=== PATIENT | female | born 1970 | race African-American/Black ===

== ENCOUNTER 2023-12-03 06:10 | Emergency (ER) | payer OTHER, SELFPAY ==
--- NOTE | ~2023-12-03 | XR_ITS ---
AP view of the pelvis and AP and lateral views of the bilateral hips Clinical history: Pain Findings: No acute fracture or dislocation is seen. Osseous alignment is anatomic. Bilateral hip and SI joint spaces are preserved. Soft tissues are unremarkable. Impression: No significant abnormality is seen. Reviewed, dictated and finalized at location . Impression: No significant abnormality is seen.
--- NOTE | ~2023-12-03 | XR_ITS ---
Lumbosacral Spine: AP and lateral views Clinical History: Pain Findings: The normal lordotic curve is maintained. There are bilateral L4 pars interarticularis defec ts, with 16 mm anterolisthesis of L4-L5. There is moderate degenerative disc narrowing L4-L5. There i s moderate facet arthropathy at L4-L5 and L5-S1. The sacroiliac joints are normally outlined. Impression: Bilateral L4 pars interarticular defects, with 16 mm anterolisthesis of L4 over L5. Additional moderate degenerative spondylosis of the lumbar spine, as above. Reviewed, dictated and finalized at location . Impression: Bilateral L4 pars interarticular defects, with 16 mm anterolisthesis of L4 over L5. Additional moderate degenerative spondylosis of the lumbar spine, as above.
[2023-12-03 06:13] VITALS: BP 149/93; PULSE 97; RESP 18; TEMP 36.8; O2SAT 100
[2023-12-03] MEDS: KETOROLAC 30 MG/ML VIAL (*BKC) IM (07:45)
[2023-12-03] MEDS: ORPHENADRINE CITRATE 100 MG TABLET.ER PO (07:45)
[2023-12-03] MEDS: dexAMETHasone SOD PHOS INJ 10 MG/ML 1 ML VIAL IM (07:45)
--- NOTE | 2023-12-03 08:33 | ED.GENADULT ---
HPI - General Adult General Chief complaint: Extremity Problem,Nontraumatic Stated complaint: Bilateral hip pain Time Seen by Provider: 12/03/23 07:31 History of Present Illness HPI narrative: Patient is a 53-year-old female who presents emergency department with chief complaint of plantar hip pain. Patient reports symptoms include worse of it has gotten worse recently. Patient states that hurts whenever she walks patient reports no trauma reports that she has had no fever denies bowel or bladder incontinence patient reports that there is no numbness or tingling. Patient reports that the pain goes from her bilateral hips down her legs and reports that it is worse with movement. Related Data Allergies Allergy/AdvReac Type Severity Reaction Status Date / Time Penicillins Allergy Mild Unknown Verified 12/03/23 06:18 Review of Systems Review of Systems: A 10 system review of systems was completed on the patient and is negative except for what is stated in the HPI. Nursing and ancillary documentation was reviewed. Exam Narrative: GENERAL: Well-appearing, well-nourished, and in no acute distress. HEAD: Normocephalic, atraumatic. EYES: PERRLA and EOMI. ENT: Nares clear, no rhinorrhea or epistaxis. Mucous membranes moist. NECK: Supple. CHEST: Clear to auscultation. No respiratory distress. HEART: Regular rate and rhythm. No murmur heard. Normal peripheral pulses. ABDOMEN: Soft, nontender, nondistended, normal active bowel sounds. EXTREMITIES: Normal range of motion. No edema. Tenderness to palpation in bilateral SI joint region SKIN: Warm, dry, no rash. NEURO: No focal deficits. Alert and oriented x3. No saddle anesthesia no footdrop PSYCH: Normal mood and affect. Course Vital Signs Vital signs: Vital Signs Temperature 36.8 C 12/03/23 06:13 Pulse Rate 97 12/03/23 06:13 Respiratory Rate 18 12/03/23 06:13 Blood Pressure 149/93 H 12/03/23 06:13 Pulse Oximetry 100 12/03/23 06:13 Oxygen Delivery Room Air 12/03/23 06:13 Temperature 36.8 C 12/03/23 06:13 Pulse Rate 97 12/03/23 06:13 Respiratory Rate 18 12/03/23 06:13 Blood Pressure 149/93 H 12/03/23 06:13 Pulse Oximetry 100 12/03/23 06:13 Oxygen Delivery Room Air 12/03/23 06:13 Medical Decision Making MDM Narrative Medical decision making narrative: Differential diagnosis includes sciatica, lumbar radiculopathy, osteoarthritis Vital Signs Vital Signs: Vital Signs Temperature 36.8 C 12/03/23 06:13 Pulse Rate 97 12/03/23 06:13 Respiratory Rate 18 12/03/23 06:13 Blood Pressure 149/93 H 12/03/23 06:13 Pulse Oximetry 100 12/03/23 06:13 Oxygen Delivery Room Air 12/03/23 06:13 Temperature 36.8 C 12/03/23 06:13 Pulse Rate 97 12/03/23 06:13 Respiratory Rate 18 12/03/23 06:13 Blood Pressure 149/93 H 12/03/23 06:13 Pulse Oximetry 100 12/03/23 06:13 Oxygen Delivery Room Air 12/03/23 06:13 Discharge Plan Discharge Clinical Impression: Sciatica Patient Disposition: Home, Self-Care Condition: Stable Instructions: Antibiotic Form, Sciatica (ED) Prescriptions: New orphenadrine citrate 100 mg tablet extended release 100 mg PO Q12H PRN (Reason: muscle spasm) Qty: 20 0RF prednisone 20 mg tablet 40 mg PO DAILY 5 Days Qty: 10 0RF diclofenac potassium 50 mg tablet 50 mg PO TID PRN (Reason: pain) Qty: 21 0RF lidocaine [Lidoderm] 5 % adhesive patch,medicated 1 patch topical DAILY PRN (Reason: pain) Qty: 15 0RF Rx Instructions: leave on most painful area for up to 12 hrs Follow-up/Referrals: UNKNOWN,DOCTOR [Primary Care Provider] - Time of Disposition: 08:38
== END 2023-12-03 08:51 | disposition home or self-care (01) ==
PROVIDERS: Emergency Provider Emergency Medicine
DX: M54.30 Sciatica, unspecified side (principal)
CPT/HCPCS: 72100; 73521; 96372; 99284; A9270; J1100; J1885

== ENCOUNTER 2025-03-26 12:33 | Emergency (ER) | payer OTHER, SELFPAY ==
[2025-03-26 12:38] VITALS: BP 150/92; PULSE 103; RESP 18; TEMP 36.9; O2SAT 98
--- NOTE | 2025-03-26 14:12 | ED.BACK ---
HPI - Back Pain/Injury General Chief Complaint: Back Pain/Injury Stated Complaint: low back pain Time Seen by Provider: 03/26/25 14:16 Source: patient Mode of arrival: ambulatory Limitations: no limitations History of Present Illness HPI Narrative: Patient is a 55-year-old female who presents the ED with report of low back pain. Patient reports she has been having ongoing pain intermittently since March. Reports intermittent spasms throughout her bilateral lower back. Has had imaging performed here and at another facility in the past which showed arthritis. Notes her recently came home after prolonged hospital stay and she has been helping him with a gait belts and Sandrita lift and believes she may have strained her back related to this. Reports pain was worse this morning upon waking. She tried taking Tylenol and ibuprofen this morning without improvement. Denies radiation down legs. Denies numbness/weakness of BLE, saddle anesthesia, bowel or bladder incontinence, dysuria, hematuria. Related Data Allergies Allergy/AdvReac Type Severity Reaction Status Date / Time Penicillins Allergy Mild Unknown Verified 03/26/25 12:40 Review of Systems Review of Systems: All systems reviewed & are unremarkable except as noted in HPI. All systems reviewed & are unremarkable except as noted in HPI and below Exam Narrative: GENERAL: Well appearing, well-nourished, non-toxic, in no acute distress. HEAD: Normocephalic, atraumatic. RESPIRATORY: Airway patent, respirations nonlabored. Clear to auscultation bilaterally, no rales, rhonchi, wheezing. CARDIOVASCULAR: Regular rate and rhythm without murmurs, rubs, or gallops. MUSCULOSKELETAL: Moves all extremities. No gross deformities. No midline lumbar spinal tenderness. No palpable bony deformities or step-offs. Mild tenderness to palpation throughout bilateral SI regions, slightly worse on the left. No CVA tenderness. Sensation intact. SKIN: Warm, dry, normal color. NEURO: A&O X3. Speech clear. Cranial nerves II-XII grossly intact. Steady gait. No ataxic movements. PSYCHIATRIC: Appropriate mood and affect. Normal interaction. Course Vital Signs Vital signs: Vital Signs Temperature 98.4 F 03/26/25 12:38 Pulse Rate 103 H 03/26/25 12:38 Respiratory Rate 18 03/26/25 12:38 Blood Pressure 150/92 H 03/26/25 12:38 Pulse Oximetry 98 03/26/25 12:38 Oxygen Delivery Room Air 03/26/25 12:38 Temperature 98.4 F 03/26/25 12:38 Pulse Rate 103 H 03/26/25 12:38 Respiratory Rate 18 03/26/25 12:38 Blood Pressure 150/92 H 03/26/25 12:38 Pulse Oximetry 98 03/26/25 12:38 Oxygen Delivery Room Air 03/26/25 12:38 MDM MDM Narrative Medical decision making narrative: Patient presented to ED with acute on chronic lower back pain. Has had pain for over 1 year that has been similar. Vital signs stable upon arrival. Patient neurologically intact. No midline spinal tenderness. No red flag symptoms or evidence of cord compression or cauda equina. Discussed obtaining repeat imaging today as it has been over a year since her last x-ray, however patient politely declined. States this feels typical of her normal back pain just worse than usual. Denies any urinary complaints or symptoms to suggest GI/ source. Discussed referral to neurosurgery. Patient is in agreement with this. Also recommended follow-up with PCP. Will discharge with short course of muscle relaxers, lidocaine patches for home use. Advised to continue Tylenol/ibuprofen. Given return precautions. She is in agreement with plan, feels comfortable going home. Discharged in stable condition. Differential Diagnosis Differential Diagnosis: Lumbar strain, compression fracture, kidney stone Medical Records I have reviewed the following patient records and this information was taken into consideration when formulating the assessment and plan.: previous labs, previous ER visits, previous hospitalizations and previous clinic visits Discharge Plan Discharge Clinical Impression: Strain of lumbar region, Acute on chronic low back pain Patient Disposition: Home Condition: Stable Instructions: Antibiotic Form, Acute Low Back Pain (ED), Lower Back Exercises (ED) Additional Instructions: Continue Tylenol and Ibuprofen as needed for pain. You can take 1000 mg of Tylenol and 600 mg of ibuprofen every 6 hours. You may use ice/heat, lidocaine patches to area of pain. Take muscle relaxers as needed and prescribed. Recommend taking these at night as they may cause sedation. Do not drive, operate heavy machinery, drink alcohol while on muscle relaxers as this may cause further sedation. Follow-up with your primary care doctor and/or neurosurgery for further evaluation. Call offices to make appointments. Return to the ED if you experience worsening or severe pain, fall or injury, numbness in groin or legs, going to the bathroom without meaning to, unable to keep down food or drink, blood in urine, or any other symptoms of concern. Patient Language: Bulgarian Prescriptions: New methocarbamol 750 mg tablet 1,500 mg PO TID PRN (Reason: muscle spasm) Qty: 15 0RF lidocaine 5 % adhesive patch,medicated 1 patch topical DAILY Qty: 15 0RF Rx Instructions: leave on most painful area for up to 12 hrs No Action orphenadrine citrate 100 mg tablet extended release 100 mg PO Q12H PRN (Reason: muscle spasm) Qty: 20 0RF prednisone 20 mg tablet 40 mg PO DAILY 5 Days Qty: 10 0RF diclofenac potassium 50 mg tablet 50 mg PO TID PRN (Reason: pain) Qty: 21 0RF lidocaine [Lidoderm] 5 % adhesive patch,medicated 1 patch topical DAILY PRN (Reason: pain) Qty: 15 0RF Rx Instructions: leave on most painful area for up to 12 hrs Follow-up/Referrals: Cherie Solorzano MD [Physician, Neurosurgery] UNKNOWN,DOCTOR [Primary Care Provider] Time of Disposition: 14:28
--- OUTSIDE RECORDS SUMMARY | 2025-03-26 14:29 | XMS_ITS | Clinical Summary ---
Author Organization [facility] Address [address] [place] [address] Care Team Providers Care Orthopedic Specialist Name Role Phone Merline Ketaing MD Primary Care Prov ider Allergies No known active allergies Medications cyclobenzaprine (FLEXERIL) 10 mg tablet Take 1 tablet (10 mg total) by mouth 2 (two) times a day as needed for muscle spasms 20 tablet 09/18/2024 Active predniSONE (DELTASONE) 20 mg tablet Take 2 tablets (40 mg) by mouth daily 8 tablet 09/18/2024 Active acetaminophen (TYLENOL) 500 mg tablet Take 1 tablet (500 mg total) by mouth every 6 (six) hours as needed for pain 30 tablet 09/18/2024 Active Surgical History Surgery Date Site/Laterality Comments OOPHERECTOMY DILATION AND CURETTAGE OF UTERUS Medical History Medical History Date Comments Trigger finger Hypertension Acid reflux Ectopic Social History Tobacco Use Types Packs/Day Years Used Date Smoking Tobacco: Every Day Cigarettes Smokeless Tobacco: Never Alcohol Use Standard Drinks/Week Comments Not Currently 0 (1 standard drink = 0.6 oz pur e alcohol) Personal Safety Answer Date Recorded Have you ever been in or are you currently in a harmful physical or emotional relationship or is someone making you feel afraid or unsafe? Denies 09/18/2024 Comments No Sex and Gender Information Value Date Recorded Sex Assigned at Not on file Legal Sex Female 11:35 PM [employer] Gender Identity Not on file Sexual Orientation Not on file Last Filed Vital Signs Vital Sign Reading Time Taken Comments Blood Pressure 127/90 09/18/2024 9:08 AM CDT Pulse 87 09/18/2024 9:08 AM CDT Temperature 36.9 C (98.4 F) 09/18/2024 7:29 AM CDT Respiratory Rate 18 09/18/2024 9:08 AM CDT Oxygen Saturation 100% 09/18/2024 9:08 AM CDT Inhaled Oxygen Concentration - - Weight 80.3 kg (177 lb) 09/18/2024 7:29 AM CDT Height 157.5 cm (5' 2) 09/18/2024 7:29 AM CDT Body Mass Index 32.37 09/18/2024 7:29 AM CDT Plan of Treatment Health Maintenance Due Date Last Done Comments Cervical Cancer Screening 1969 Colon Cancer Screening-Colonoscopy 1969 Depression Screening 1969 Hepatitis C Screening 1969 DTaP/Tdap/Td Vaccine (1 - Tdap) 02/01/1980 Hepatitis B Screening 1987 Regular Well Visit/Exam 18-64 1987 Pneumococcal vaccine <65 (1 of 2 - PCV) 02/01/1988 Breast Cancer Screening-Mammogram 09/23/2017 017 Zoster Vaccine (1 of 2) 2019 Covid-19 Vaccine (3 - season) 2024, 10/06/2020 Influenza Vaccine (#1) 2024 06/07/2021 Procedures Procedure Name Priority Date/Time Associated Diagnosis Comments SCREENING MAMMOGRAM BILATERAL W RUBEN Routine 09/23/2016 11:01 AM CDT from Last 3 Months or Most Recently Relevant to Health Maintenance Results * Screening Mammogram Bilateral W Ruben (09/23/2016 11:01 AM CDT) Anatomical Region Laterality Modality Breast Bilateral Mammography 09/23/2016 11:0 1 AM CDT Impressions 09/23/2016 12:43 PM CDT BI-RAD 1 NEGATIVE There is no mammographic evidence of malignancy. A 1 year screening mammogram is recommended. The patient has been or will be contacted. The patient will be entered into a reminder system with a target due date of 1 year for her next screening exam. Electronically signed by: Dr. John Hernandes M.D. nh/:09/23/2016 12:42:47 Tow Motor Operator: Sara Snowden (R)), [facility] letter sent: Normal Exam Reading location: BI-RADS: 1 Negative [EOD] Narrative 09/23/2016 12:43 PM CDT - MG BILATERAL DIGITAL SCREENING MAMMOGRAM 3D/2D WITH MEDIOLATERAL OBLIQUE CRANIOCAUDAL: 09/23/2016 The study was acquired using full field digital technology and interpreted from soft copy. 2D digital mammographic views, as well as 3D digital tomosynthesis were performed in the CC and MLO projections. CLINICAL: Baseline mammogram. Denies any problems today. No personal history of breast cancer. No family history of breast cancer. COMPARISONS: None. BREAST TISSUE: The tissue of both breasts is heterogeneously dense, which may obscure small masses. FINDINGS: No significant masses, calcifications, or other findings are seen in either breast. Procedure Note Provider, MD Henrry - 08/12/2020 - MG BILATERAL DIGITAL SCREENING MAMMOGRAM 3D/2D WITH MEDIOLATERAL OBLIQUE CRANIOCAUDAL: 09/23/2016 The study was acquired using full field digital technology and interpretedfrom soft copy. 2D digital mammographic views, as well as 3D digital tomosynthesis were performed in the CC and MLO projections. CLINICAL: Baseline mammogram. Denies any problems today. No personalhistory of breast cancer. No family history of breast cancer. COMPARISONS: None. BREAST TISSUE: The tissue of both breasts is heterogeneously dense, whichmay obscure small masses. FINDINGS: No significant masses, calcifications, or other findings areseen in either breast. IMPRESSION: BI-RAD 1 NEGATIVE There is no mammographic evidence of malignancy. A 1 year screeningmammogram is recommended. The patient has been or will be contacted. The patient will be entered into a reminder system with a target due dateof 1 year for her next screening exam. Electronically signed by: Dr. John Hernandes M.D. nh/:09/23/2016 12:42:47 Tow Motor Operator: Sara Snowden (R)), [facility] letter sent: Normal Exam Reading location: BI-RADS: 1 Negative [EOD] Sol Cummings SUPERVISOR CHANNEL PROCESS IMG MAMMO PROCEDURES Fin al Result from Last 3 Months or Most Recently Relevant to Health Maintenance Insurance [facility] Care Teams Orthopedic Specialist Relationship Specialty Start Date End Date Merline Keating MD PCP - General Family Medicine 11/07/21
--- OUTSIDE RECORDS SUMMARY | 2025-03-26 14:29 | XMS_ITS | Data Portability ---
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 Plan of Treatment Reminders Order Date Submit Date Provider Last Modified By Organization Details Last Modified Time Details Appointments ANY 15 2025 01:45P Homer mayer MD Not available Not available Not available Lab HbA1c (hemog lobin A1c), blood 2024 025 [email or web address] In-Office Order, Internal Use Only DO Not Attach Compendium DO Not Attach Compendium, Do Not Delete/merge, [id number] 10/23/2024 14:43:21 hepati tis B surfac e Ab, quanti tative , serum 2023 024 CHAY [facility] (Centralized Electronic Ordering - All Locations), Patient Can Go To The Location Of Their Choice, [id number] 03/07/2024 08:29:37 varice lla zoster virus IgG Ab, QN, IA, serum 2023 024 CHAY [facility] (Centralized Electronic Ordering - All Locations), Patient Can Go To The Location Of Their Choice, [id number] 03/07/2024 08:29:38 HbA1c (hemog lobin A1c), blood 2023 024 [email or web address] In-Office Order, Internal Use Only DO Not Attach Compendium DO Not Attach Compendium, Do Not Delete/merge, [id number] 03/06/2024 12:31:44 CMP, serum or plasma 2023 024 FONDA [facility] (Centralized Electronic Ordering - All Locations), Patient Can Go To The Location Of Their Choice, [id number] 03/07/2024 08:29:36 Referral physic al therap ist referr pr 2024 025 franklyn [facility], [address], [place], [address], 10/23/2024 14:43:30 gastro entero logist referr pr 2024 025 alirio [facility], [address], [place], [address], 11/14/2024 11:50:57 Procedures None record ed. Surgeries None record ed. Imaging None record ed. Medication Orders cyclob enzapr ine 10 mg tablet 2024 025 FONDA [id number], [address] , [place], [place], [id number], 10/23/2024 14:43:27 ammoni um lactat e 12 % lotion 2023 024 FONDA [facility] #[id number], [address] [facility], [place], [place], [id number], 02/02/2024 13:46:54 Patient TargetsNo targets recorded. Patient Instructions Encounter Date Encounter Id Patient Instructions Last Modified By Organization Details Last Modified Time 03/06/2024 [id number] A healthy lifestyle: care instructions [email or web address] Not available 03/06/2024 22:46:43 Quitting Tobacco: Care Instructions [email or web address] Not available 03/06/2024 22:47:40 FU 6 months [email or web address] Not available 1 05/08/2023 13:58:26 10/23/2024 [id number] FU 6 months [email or web address] Not available 10/24/2024 10:08:34 Reason for Referral Physical Therapist Referral for Low back pain Referring Physician: Hellen Deiz [facility], Encounter Date: 10/23/2024 Trailer Park Manager Referral for Screening for malignant neoplasm of colon Referring Physician: Hellen Diez [facility], Encounter Date: 10/23/2024 Results Created Date Observation Date Name Description Value Unit Range Abnormal Flag Note LastModifiedBy Organization Detail LastModifiedTime 03/06/20 24 03/07/2024 COMP. METAB OLIC PANEL (14) glucose 82 mg/dL 70-99 Not Available [facility] ([facility]) [address] [place], [address], 03/07/2024 08:29:36 03/06/20 24 03/07/2024 COMP. METAB OLIC PANEL (14) BUN 12 mg/dL 6-24 Not Available [facility] ([facility]) [address] [place], [address], 03/07/2024 08:29:36 03/06/20 24 03/07/2024 COMP. METAB OLIC PANEL (14) creatinine 0.72 mg/dL 0.57-1 .00 Not Available [facility] ([facility]) [address] [place], [address], 03/07/2024 08:29:36 03/06/20 24 03/07/2024 COMP. METAB OLIC PANEL (14) eGFR 99 mL/mi n/1.7 3 >59 Not Available [facility] ([facility]) [address] [place], [address], 03/07/2024 08:29:36 03/06/20 24 03/07/2024 COMP. METAB OLIC PANEL (14) BUN/creatini ne ratio 17 9-23 Not Available [facility] ([facility]) [address] [place], [address], 03/07/2024 08:29:36 03/06/20 24 03/07/2024 COMP. METAB OLIC PANEL (14) sodium 142 mmol/ L 134-14 4 Not Available [facility] ([facility]) [address] [facility] [place], [address], 03/07/2024 08:29:36 03/06/20 24 03/07/2024 COMP. METAB OLIC PANEL (14) potassium 4.0 mmol/ L 3.5-5. 2 Not Available [facility] ([facility]) [address] [facility] [place], [address], 03/07/2024 08:29:36 03/06/20 24 03/07/2024 COMP. METAB OLIC PANEL (14) chloride 107 mmol/ L 96-106 above high normal Not Available [facility] ([facility]) [address] [place], [address], 03/07/2024 08:29:36 03/06/20 24 03/07/2024 COMP. METAB OLIC PANEL (14) carbon dioxide, total 20 mmol/ L 20-29 Not Available [facility] ([facility]) [address] [facility] [place], [address], 03/07/2024 08:29:36 03/06/20 24 03/07/2024 COMP. METAB OLIC PANEL (14) calcium 9.8 mg/dL 8.7-10 .2 Not Available [facility] ([facility]) [address] [facility] [place], [address], 03/07/2024 08:29:36 03/06/20 24 03/07/2024 COMP. METAB OLIC PANEL (14) protein, total 6.8 g/dL 6.0-8. 5 Not Available [facility] ([facility]) [address] [facility] [place], [address], 03/07/2024 08:29:36 03/06/20 24 03/07/2024 COMP. METAB OLIC PANEL (14) albumin 4.5 g/dL 3.8-4. 9 Not Available [facility] ([facility]) [address] [place], [address], 03/07/2024 08:29:36 03/06/20 24 03/07/2024 COMP. METAB OLIC PANEL (14) globulin, total 2.3 g/dL 1.5-4. 5 Not Available [facility] ([facility]) [address] [place], [address], 03/07/2024 08:29:36 03/06/20 24 03/07/2024 COMP. METAB OLIC PANEL (14) bilirubin, total 0.3 mg/dL 0.0-1. 2 Not Available [facility] ([facility]) [address] [facility] [place], [address], 03/07/2024 08:29:36 03/06/20 24 03/07/2024 COMP. METAB OLIC PANEL (14) alkaline phosphatase 98 IU/L 44-121 Not Available [facility]) [address] [facility] [place], [address], 03/07/2024 08:29:36 03/06/20 24 03/07/2024 COMP. METAB OLIC PANEL (14) AST (SGOT) 18 IU/L 0-40 Not Available [facility] ([facility]) [address] [facility] [place], [address], 03/07/2024 08:29:36 03/06/20 24 03/07/2024 COMP. METAB OLIC PANEL (14) ALT (SGPT) 20 IU/L 0-32 Not Available [facility] ([facility]) [address] [facility] [place], [address], 03/07/2024 08:29:36 03/06/20 24 03/07/2024 HEPAT ITIS B SURF [place]ANT [place] [address]. 0 mIU/m L immuni ty>10 Resul ts confi rmed on dilut ion. Statu s of Immun ity Anti- HBs Level ----- ----- ----- --- ----- ----- ---- Incon siste nt with Immun ity 0.0 - 10.0 Consi stent with Immun ity >10.0 Not Available [facility] ([facility]) [address] [facility], [place], [address], 03/07/2024 08:29:37 03/06/20 24 03/07/2024 VZV IGG IMMUN ITY vzv IgG 16.00 S/co >0.99 Not Available [facility] ([facility]) [address] [facility], [place], [address], 03/07/2024 08:29:38 03/06/20 24 03/07/2024 VZV IGG IMMUN ITY vzv IgG interpretati on: REACTI VE Not Available [facility] ([facility]) [address] [facility], [place], [address], 03/07/2024 08:29:38 03/06/20 24 03/07/2024 PLEAS E NOTE: please note: Commen t A react aric resul t is consi dered evide nce of immun ity to VZV. React aric indic ates that VZV IgG was detec corry consi stent with previ ous infec tion and/o r vacci natio n. The signa l-to- cutof f value (S/CO ) is not an antib siddharth titer and does not equat e to antib siddharth level . Not Available [facility] ([facility]) [address] [facility], [place], [address], 03/07/2024 08:29:40 03/06/20 24 03/06/2024 HbA1c (hemo globi n A1c), blood HbA1c 6.5 Not Available In-Office Order Internal Use Only DO Not Attach Compendium DO Not Attach Compendium, Do Not Delete/merge, [id number] 03/06/2024 11:55:35 10/24/19 25 10/23/2024 HbA1c (hemo globi n A1c), blood HbA1C 6.5 % Not Available In-Office Order Internal Use Only DO Not Attach Compendium DO Not Attach Compendium, Do Not Delete/merge, [id number] 10/23/2024 14:05:48 07/10/19 25 07/09/2024 elect rocwoodrow diogr am No observ ation record ed. [facility] Scheduling [address], [place], [address], 07/09/2024 17:26:25 07/10/19 25 07/09/2024 XR, chest No observ ation record ed. [facility] Scheduling [address], [place], [address], 07/09/2024 17:26:46 07/10/19 25 07/09/2024 elect bisi diogr am No observ ation record ed. [facility] Scheduling [address], [place], [address], 07/09/2024 17:27:09 09/09/19 25 09/08/2024 XR, lumba r spine No observ ation record ed. [facility] Scheduling [address], [place], [address], 09/09/2024 12:17:36 09/09/19 25 09/08/2024 XR, hip + pelvi s, bilat eral No observ ation record ed. [facility] Scheduling [address], [place], [address], 09/09/2024 12:18:20 Result Notes None recorded. Problems Name Problem SNOMED Code Status Onset Date Resolution Date Notes Provider Name and Address Organization Details Recorded Time Acid reflux 422159439 Active 2015 Camelia Montemayor MA null, [place] - [facility] 11:28:47 Heart murmur 38772754 Active 2015 LYNETTE Malagon, [place] - [facility] 11:33:10 Deep venous thrombosi s 921310343 Active 2020 distal R calf - not clear provoked Hellen rome MD Attn: Accounting ,[address] [place], [address] , [facility] 1 10:15:14 Abnormal uterine bleeding 39940216721 100 Active 2020 Hellen rome MD Attn: Accounting ,[address] [facility], [place], [address] , [facility] - [facility] 1 11:55:23 Mass of ovary 340043077 Active 2020 R ovarian mass 05/2017 - s/p oophorect ayush Hellen rome MD Attn: Accounting ,[address] [place], [address] , [facility] 1 09:35:05 Abnormal cervical Papanicol aou smear 058950105 Active 04/2021 HPV+ 16/18 neg. Repeat one year Hellen rome MD Attn: Accounting ,[address] [place], [address] , [facility] 2 17:28:52 Essential hypertens ion 23335071 Active 2021 Hellen rome MD Attn: Accounting ,[address] [place], [address] , [facility] 2 13:22:02 Diabetes mellitus 67276628 Active 2021 early DM - metformin and wt loss Hellen rome MD Attn: Accounting ,[address] [place], [address] , [facility] 2 13:29:19 Problem Notes None recorded. Procedures Surgical History Date Name Laterality Status Provider Name and Address Organization Details Recorded Time 05/03/19 Endometrial Biopsy completed Sincere Blunt [facility] 05/03/2021 13:55:14 05/03/19 22 Date of Last Pap Smear completed Sincere Blunt [facility] 05/10/2021 12:38:49 12/19/19 21 Most Recent Mammogram completed Cathyolegario Ruiz MP [facility] 12/07/2021 11:18:51 03/15/20 17 Endometrial Biopsy completed [facility] 03/15/2017 21:54:57 06/07/19 17 Cerumen removal without microscope completed Lissett Green [facility] 06/06/2016 13:18:49 03/27/19 06 Oophorectomy completed [facility] 12/21/2016 15:50:17 03/27/18 95 Ectopic completed [facility] 12/21/2016 15:48:21 03/27/18 90 Dilation and Curettage completed [facility] 12/21/2016 15:49:46 Imaging Results None recorded. Procedure Notes None recorded. Medical Equipment None Reported. Allergies Allergen ID Allergen Name Allergen Category Reaction Reaction Severity Criticality Documentation Date Start Date Code Code System Note Provider Name and Address Organization Details Recorded Time 66916 Darvocet- N medicatio n headache nausea Not available Not available Not available 12/21/2016 LYNETTE Tanner, [facility] 7 15:09:45 52217 acetamino phen / oxycodone medicatio n headache nausea Not available Not available Not available 12/21/2016 43164 3 RxNorm Sincere westfall [facility] 2 13:51:27 Medications Name Sig Start Date Stop Date Status Note LastModified by Organization Details LastModified Time cyclobenz aprine 10 mg tablet Take 1 tablet(s ) twice a day by oral route as needed 2024 active Not Available Not Available Not Avai lable amoxicill in 500 mg capsule 05/03 completed Not Available Not Available Not Available atorvasta tin 40 mg tablet TAKE 1 TABLET BY MOUTH EVERY DAY active Not Available Not Available No t Available metformin 500 mg tablet TAKE 1 TABLET BY MOUTH TWICE DAILY 12/25 completed Not Available Not Available Not Available prednison e 10 mg tablet 09/02 completed Not Available Not Available Not Available nabumeton e 750 mg tablet TAKE 1 TABLET BY MOUTH TWICE DAILY 10/24 completed Not Available Not Available Not Available clindamyc in HCl 300 mg capsule TAKE 1 CAPSULE BY MOUTH EVERY 8 HOURS 12/25 completed Not Available Not Available Not Available ammonium lactate 12 % lotion APPLY A THIN LAYER TO FEET TWICE DAILY active Not Available Not Available No t Available triamcino lone acetonide 0.5 % topical cream 09/02 completed Not Available Not Available Not Available ibuprofen 800 mg tablet 12/25 completed Not Available Not Available Not Available fluconazo le 150 mg tablet TAKE 1 TABLET BY MOUTH EVERY DAY FOR 1 DAY 12/25 completed Not Available Not Available Not Available hydrocodo ne 5 mg-acetam inophen 325 mg tablet 12/21 completed Not Available Not Available Not Available promethaz ine 6.25 mg/5 mL oral syrup Take 10 mL every 6 hours by oral route as needed. 09/02 completed Not Available Not Available Not Available Claritin 10 mg tablet Take 1 tablet(s ) every day by oral route as needed 2024 active Not Available Not Available Not Avai lable famotidin e 40 mg tablet TAKE 1 TABLET BY MOUTH EVERY DAY NEEDED 02/15 completed Not Available Not Available Not Available prednison e 20 mg tablet TAKE 2 TABLETS BY MOUTH DAILY FOR 5 DAYS 10/24 completed Not Available Not Available Not Available penicilli n V potassium 500 mg tablet TAKE 1 TABLET BY MOUTH THREE TIMES DAILY FOR 7 DAYS 12/25 completed Not Available Not Available Not Available clotrimaz ole 1 % vaginal cream Insert 1 applicat orful every day by vaginal route at bedtime for 7 days. 03/15 completed Not Available Not Available Not Available acetamino phen 300 mg-codein e 30 mg tablet 08/12 completed Not Available Not Available Not Available amlodipin e 5 mg tablet Take 1 tablet every day by oral route. 12/25 completed Not Available Not Available Not Available sulfameth oxazole 800 mg-trimet hoprim 160 mg tablet TAKE 1 TABLET BY MOUTH TWICE DAILY 09/02 completed Not Available Not Available Not Available tramadol 50 mg tablet 09/02 completed Not Available Not Available Not Available triamcino lone acetonide 0.1 % topical cream 09/02 completed Not Available Not Available Not Available amoxicill in 500 mg tablet 05/03 completed Not Available Not Available Not Available warfarin 6 mg tablet Take 1 tablet every day by oral route. 05/03 completed stopped 2months ago Not Available Not Available Not Available OneTouch Ultra Test strips USE TO CHECK BLOOD SUGAR DAILY NEEDED active Not Available Not Available No t Available amlodipin e 10 mg tablet TAKE 1 TABLET BY MOUTH EVERY DAY active Not Available Not Available No t Available benzonata te 100 mg capsule TK ONE C PO TID PRN COU 08/12 completed Not Available Not Available Not Available ferrous sulfate 325 mg (65 mg iron) tablet Take 1 tablet every day by oral route. 10/24 completed Not Available Not Available Not Available metformin 1,000 mg tablet Take 1 tablet(s ) twice a day by oral route for 90 days. 2023 active Not Available Not Available Not Avai lable ranitidin e 150 mg tablet TAKE 1 TABLET BY MOUTH TWICE DAILY BEFORE MEALS 09/02 completed Not Available Not Available Not Available prednison e 50 mg tablet TAKE 1 TABLET BY MOUTH DAILY 12/25 completed Not Available Not Available Not Available lidocaine 5 % topical patch 10/24 completed Not Available Not Available Not Available orphenadr ine citrate ER 100 mg tablet,ex tended release TAKE 1 TABLET BY MOUTH TWICE DAILY 10/24 completed Not Available Not Available Not Available diclofena c potassium 50 mg tablet TAKE 1 TABLET BY MOUTH THREE TIMES DAILY NEEDED FOR PAIN 02/15 completed Not Available Not Available Not Available gabapenti n 300 mg capsule 12/21 completed Not Available Not Available Not Available omeprazol e 20 mg capsule,d elayed release Take 1 capsule every day by oral route at bedtime. 10/20 completed Not Available Not Available Not Available bisacodyl 5 mg tablet,de layed release At 2:00 PM the day before the colonosc opy, take all 4 tablets of Dulcolax by mouth at one time with 8 ounces of water 10/24 completed Not Available Not Available Not Available ibuprofen 600 mg tablet TAKE 1 TABLET BY MOUTH THREE TIMES DAILY FOR 10 DAYS DIRECTED active Not Available Not Available No t Available polyethyl vilma glycol 3350 17 gram/dose oral powder TAKE BY MOUTH DIRECTED FOR COLONOSC OPY PREP 12/25 completed Not Available Not Available Not Available methylpre dnisolone 4 mg tablets in a dose pack FOLLOW PACKAGE DIRECTIO NS 12/25 completed Not Available Not Available Not Available albuterol sulfate HFA 90 mcg/actua tion aerosol inhaler INL 2 PFS PO Q 6 H PRF SOB OR WHZ 10/20 completed Not Available Not Available Not Available pioglitaz one 30 mg tablet TAKE 1 TABLET BY MOUTH EVERY DAY 12/25 completed GII upset Not Available Not Available Not Available fluticaso ne propionat e 50 mcg/actua tion nasal spray,deena pension SHAKE LIQUID AND USE 1 SPRAY IN EACH NOSTRIL TWICE DAILY active Not Available Not Available No t Available medroxypr ogesteron e 150 mg/mL intramusc ular suspensio n ADMINIST ER 1 ML IN THE MUSCLE EVERY 3 MONTHS DIRECTED 12/25 completed Not Available Not Available Not Available doxycycli ne hyclate 100 mg tablet TAKE 1 TABLET BY MOUTH TWICE DAILY FOR 10 DAYS 08/12 completed Not Available Not Available Not Available naproxen 500 mg tablet TAKE 1 TABLET BY MOUTH TWICE DAILY 12/25 completed Not Available Not Available Not Available amoxicill in 875 mg-potass ium clavulana te 125 mg tablet TAKE 1 TABLET BY MOUTH TWICE DAILY 10/24 completed Not Available Not Available Not Available neomycin- polymyxin -hydrocor t 3.5 mg-10,000 unit/mL-1 % ear drops,deena p 12/21 completed Not Available Not Available Not Available azithromy surya 500 mg tablet TK 1 T PO D 05/03 completed Not Available Not Available Not Available medroxypr ogesteron e 150 mg/mL intramusc ular syringe Inject 1 mL x1 by intramus cular route for contrace ption 12/25 completed Not Available Not Available Not Available Alcohol Prep Pads APPLY 1 PAD EVERYDAY BY TOPICAL ROUTE active Not Available Not Available No t Available Depo-SubQ provera 104 104 mg/0.65 mL subcutane ous syringe Inject 0.65 mL every 3 months by subcutan eous route. 02/15 completed Not Available Not Available Not Available chlorhexi dine gluconate 0.12 % mouthwash 08/12 completed Not Available Not Available Not Available nitrofura ntoin macrocrys christophe 03/15 completed Not Available Not Available Not Available Oysco 500/D 500 mg-5 mcg (200 unit) tablet TAKE 1 TABLET BY MOUTH TWICE DAILY DIRECTED . active Not Available Not Available No t Available Farxiga 10 mg tablet TAKE 1 TABLET BY MOUTH EVERY DAY active Not Available Not Available No t Available Jardiance 10 mg tablet TAKE 1 TABLET BY MOUTH EVERY DAY 01/28 completed Not Available Not Available Not Available Jardiance 25 mg tablet TAKE 1 TABLET BY MOUTH EVERY DAY active Not Available Not Available No t Available OneTouch Ultra2 Meter USE TEST BLOOD SUGAR DIRECTED . active Not Available Not Available No t Available OneTouch Delica Plus Lancet 33 gauge USE TO TEST BLOOD SUGAR DIRECTED . active Not Available Not Available No t Available Vitals Date Recorded Systolic And Diastolic Provider Name and Address Organization Details Last Updated DateTime 10/23/2024 130/78 mm[Hg] Hellen Diez MD Attn: Accounting,[address] [place], [address], [place] [facility] 10/24/2024 10:08:59 Date Recorded Body height Body mass index (BMI) Body weight Body temperature Heart rate Systolic And Diastolic Provider Name and Address Organization Details Last Updated DateTime 5 157.48 cm 31.8 kg/m2 74111.0 7 g 97.7 [degF] 94 /min 142/84 mm[Hg] Carla Macdonald [place] - [facility] 5 14:12:09 Date Recorded Body height Body temperature Body mass index (BMI) Body weight Heart rate Pain severity - 0-10 verbal numeric rating [Score] - Reported Systolic And Diastolic Provider Name and Address Organization Details Last Updated DateTime 4 157.48 cm 98.3 [degF] 34 kg/m2 56208.1 8 g 83 /min 0 152/86 mm[Hg] Baldo Penaloza MA [facility] 4 10:53:46 Date Recorded Body height Pain severity - 0-10 verbal numeric rating [Score] - Reported Heart rate Body temperature Systolic And Diastolic Provider Name and Address Organization Details Last Updated DateTime 02/16/2024 157.48 cm 6 98 /min 98.2 [degF] 136/91 mm[Hg] Neha August cooley MA [facility] 4 10:48:56 Date Recorded Systolic And Diastolic Provider Name and Address Organization Details Last Updated DateTime 03/06/2024 136/82 mm[Hg] Hellen Diez MD Attn: Accounting,[address] [place], [address], [facility] 03/06/2024 12:37:06 Date Recorded Body height Provider Name an d Address Organization Details Last Updated DateTime 03/06/2024 157.48 cm Carla Torres [facility] 4 11:54:27 Date Recorded Body mass index (BMI) Body weight Heart rate Body temperature Systolic And Diastolic Provider Name and Address Organization Details Last Updated DateTime 03/06/2024 33.1 kg/m2 52443.22 g 103 /min 97.6 [degF] 143/85 mm[Hg] Tere Dhillon MA [facility] 4 11:59:31 Date Recorded Body height Body mass index (BMI) Body weight Heart rate Body temperature Pain severity - 0-10 verbal numeric rating [Score] - Reported Systolic And Diastolic Provider Name and Address Organization Details Last Updated DateTime 157.48 cm 33.2 kg/m2 34471.3 7 g 100 /min 98.2 [degF] 5 131/88 mm[Hg] Baldo Penaloza MA [facility] 4 11:03:25 Social History Question Answer Notes LastModified by Organizat ion Details LastModified Time Tobacco Smoking Status Current Every Day Smoker LYNETTE Malagon, [facility] 01/27/2016 11:30:33 Do You Have An Advance Directive? No Information not available 08/11/2021 Animal Exposure? No Informat ion not available 06/06/2016 Are You Blind Or Do You Have Difficulty Seeing? No Information not available 01/26/2022 Is Blood Transfusion Acceptable In An Emergency? Yes Information not available 12/21/2016 What Is Your Level Of Caffeine Consumption? Heavy Information not available 01/27/2016 How Much Tobacco Do You Chew? None Information not available 12/21/2016 In The 14 Days Before Symptom Onset, Have You Had Close Contact With A Laboratory-confir med COVID-19 While That Case Was Ill? No Information not available 02/02/2024 In The 14 Days Before Symptom Onset, Have You Had Close Contact With A Person Who Is Under Investigation For COVID-19 While That Person Was Ill? No Information not available 02/02/2024 Have You Been To An Area Known To Be High Risk For COVID-19? No Information not available 02/02/2024 Are You Deaf Or Do You Have Serious Difficulty Hearing? No Information not available 01/26/2022 What Type Of Diet Are You Following? REGULAR Information not available 01/27/2016 Which Illicit Or Recreational Drugs Have You Used? Denies Information not available 01/27/2016 Education 12 1 Yr Of College Information not available 12/21/2016 Exposure To Cat Litter No Information not available 06/06/2016 Swimming/diving No Informati on not available 06/06/2016 Have There Been Any Changes To Your Family Or Social Situation? No Information no t available 04/27/2023 Frequent Air Travel No Information not available 06/06/2016 Are There Any Guns Present In Your Home? No Information not available 01/26/2022 Legally Blind In One Or Both Eyes? No Information no t available 06/06/2016 Live Alone Or With Others? With Others Information not available 06/06/2016 Do You Have A Medical Power Of Reimbursement Coordinator? No Information not available 08/11/2021 What Was The Date Of Your Most Recent Tobacco Screening? 03/18/2024 Information not available 03/18/2024 How Many Children Do You Have? 0 Information not available 01/27/2016 Performs Monthly Self-breast Exam? No Information no t available 12/21/2016 Do You Have Any Pets? No Information not available 04/27/2023 Do You Use Protection During Sex? Usually Information not available 12/21/2016 What Is Your Relationship Status? Single Information not available 12/21/2016 Do You Use Your Seat Belt Or Car Seat Routinely? Yes Information not available 01/26/2022 Seat Belts Used Routinely Yes Information not available 12/21/2016 Are You Sexually Active? Yes Information not available 12/21/2016 Do You Have Smoke And Carbon Monoxide Detectors In Your Home? Yes Information not available 01/26/2022 At What Age Did You Start Smoking Tobacco? 15 Information not available 05/17/2022 Are You Passively Exposed To Smoke? Yes Information no t available 01/26/2022 How Much Tobacco Do You Smoke? 0.5 PPD Quit Smoking Cigarettes , Now Smoking 1/2 Pack Per Day [email or web address] Information not available 07/06/2023 Snorkel/SCUBA No Information not available 06/06/2016 General Stress Level Medium Information not available 12/21/2016 Do You Use Sunscreen Routinely? No Information not available 12/21/2016 Swim Often No Information no t available 06/06/2016 Has Tobacco Cessation Counseling Been Provided? Yes [email or web address] Information not available 05/10/2021 On What Date Was Tobacco Cessation Counseling Provided? 03/18/2024 Information not available 03/18/2024 How Many Years Have You Smoked Tobacco? 34 Information not available 08/25/2022 Sex: Female Functional Status Question Answer Note LastModified by Organizat ion Details LastModified Time Do you use any illicit or recreational drugs? No Information not available 01/26/2022 Do you or have you ever used any other forms of tobacco or nicotine? No Information not available 04/27/2023 What is your level of alcohol consumption? None Information not available 01/27/2016 Are you currently employed? No Information not available 12/21/2016 Are you able to care for yourself independently? Yes Information not available 06/06/2016 What is your exercise level? None Information not available 01/27/2016 Mental Status Question Answer Note LastModified by Organization D etails LastModified Time Do you feel stressed (tense, restless, nervous, or anxious, or unable to sleep at night)? [id number] Information not available 01/26/2022 Family History Relationship Description Onset Age of this Age Resolved Age Notes LastModified by Organization Details LastModified Time Mother Diabetes mellitus [email or web address] Not available 01/26 11:30:08 Mother Essential hypertension [email or web address] Not available 11:30:22 Mother Hypercholest erolemia [email or web address] Not available 2016 15:25:15 Father Essential hypertension [email or web address] Not available 15:24:52 Father Diabetes mellitus [email or web address] Not available 2016 15:25:00 Father Hypercholest erolemia [email or web address] Not available 2016 15:25:15 Medical History Condition Response Coronary Artery Disease N Other N High Blood Pressure N Atrial Fibrillation N Thyroid Problems N Kidney or Bladder Problems N GI Problems N Depression N COPD N Blood Clots Y Skin Problems N Anemia Y Heart Attack ([place]) N Headaches/Migraines Y Anxiety Disorder N Diabetes N Muscle, Joint, or Bone Problems N Arthritis N Seizures/Epilepsy N Acid Reflux (GERD) Y Cancer N Stroke N Asthma N Allergies N High Cholesterol N Hepatitis N Liver Disease N Headaches Y Hypertension Y Heart Failure N Osteoporosis N Gynecological History Statement/Question Response Abnormal Pap Y Flow Moderate On BCP's at Conception? 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 N Menses Monthly N Date of Last Pap Smear 05/03/2021 Sexual Problems? Y LMP Approximate Desired Control Method N/A Obstetrics History GPAL:G 1 P 0 0 1 0 Type Value Multiple Births 0 Full Term 0 Induced 0 Spontaneous 0 Premature 0 Living 0 Ectopics 1 Total 1 Immunizations Vaccine Type Date Status Note Provider Nam e and Address Organization Details Recorded Time COVID-19, mRNA, LNP-S, PF, 100 mcg/0.5mL dose or 50 mcg/0.25mL dose 10/06/2020 completed SAMAN SORENSEN NP Attn: Accounting,[address] [facility], [place], [address], [place] [facility] 08/25/2022 08:53:53 Influenza, recombinant, quadrivalent, PF 06/07/2021 completed SAMAN SORENSEN NP Attn: Accounting,[address] [facility], [place], [address], [place] [facility] 08/25/2022 08:53:53 COVID-19, mRNA, LNP-S, PF, 30 mcg/0.3 mL dose, james-sucrose 06/07/2021 completed SAMAN SORENSEN NP Attn: Accounting,[address] [facility], [place], [address], [place] [facility] 08/25/2022 08:53:53 Influenza, MDCK, trivalent, PF 02/29/2024 completed Not Available [facility] 2024 14:00:54 Tdap 03/01/2024 completed Not Available [facility] 10/23/2024 14:00:54 COVID-19, mRNA, LNP-S, PF, james-sucrose, 30 mcg/0.3 mL 03/01/2024 completed Not Available [facility] 2024 14:00:54 MMR 03/02/2024 completed Not Available [facility] 10/23/2024 14:00:54 IPV 03/02/2024 completed Not Available [facility] 10/23/2024 14:00:54 MMR 05/02/2024 completed Not Available [facility] 10/23/2024 14:00:54 Past Encounters Encounter ID Performer Location Encounter Start Date Encounter Closed Date Diagnosis/Indication Diagnosis SNOMED-CT Code Diagnosis ICD10 Code Diagnosis IMO Codes Diagnosis Note [id number] AURELIANO Joe [address] [address] 01/27/2016 11:07:29 01/27/2016 12:16:09 Adult health examination 416526121 Z00.00 NAD. Very happy and inteactive . No care in >10 years. PMH unremarkab le. Discussed labs and FU. Blood pres sure above reference range 86956715 R03.0 130/80 Obesity 195381711 E66.9 BMI=34.3 Tobacco de pendence syndrome 60388023 F17.290 Current everyday smoker 1PPD. Discussed implicatio ns on health, need for smoking cessation, to include the available options Numbness of hand 4912526 04 R20.0 Bilateral hand. Previously diagnosed with bilateral trigger thumb >10 years ago. Symptoms worsening and hands swelling. Gastroesop hageal reflux disease without esophagitis 000017123 K21.9 Start therapy w/ Fu [id number] Srinivas Beyer MD [facility] [address] [address] 06/06/2016 12:15:27 06/07/2016 17:12:01 Impacted cerumen 00667708 H61.20 both ears cleared by irrigation and curette [id number] Anselmo Wong MD [address] [address] 06/14/2016 15:45:35 06/21/2016 14:37:32 Numbness of hand 373979455 R20.0 Bilateral hand. Previously diagnosed with bilateral trigger thumb >10 years ago. Symptoms worsening and hands swelling. [id number] Christopher Rankin MD Moren[facility] garcía (PROTOZOOLOGIST) [address] [place] [address] 12/21/2016 14:28:14 12/27/2016 16:06:59 Gynecologic examination 41159884 Z01.411 Menorrhagia 826730701 N9 2.0 High risk sexual behavior 169772713 Z72.51 [id number] MD [facility] (PROTOZOOLOGIST) [address] [place] [address] 03/15/2017 14:10:24 04/03/2017 09:01:04 Menorrhagia 513852319 N92.0 [id number] [facility] ([facility] [address] [place] [address] 06/21/2017 11:29:08 06/27/2017 14:40:38 [id number] Sha Kwon MD [address] [address] 07/17/2017 17:57:58 07/21/2017 09:28:54 Upper respiratory infection 05959428 J06.9 Infection of tooth 44430 8007 K04.7 [id number] Anselmo Wong MD [address] [address] 03/09/2018 18:10:20 03/12/2018 09:22:14 History and physical examination, pre-employment 658377585 Z02.1 H&P is unremarkab le. Discussed staying active to maintain a healthy BMI. Completed physical form. original given to patient with copy to be scanned to file. [id number] Hellen rome MD [facility] (Adult Med) [address] [place] [address] 12/03/2020 09:49:27 12/04/2020 18:26:03 Abnormal uterine bleeding 8486291882 9100 N93.9 Present x 1 year. Scheduled with director traffic and planning 12/21 Elevated blood-pressure reading without diagnosis of hypertension 430832228 R03.0 Recheck at fu - suspect HTN Tobacco user 888821887 Z 72.0 1/2 ppd since age 15. Not ready quit at this time. Precontemp lative. Address at fu Screening mammography 24 047667 Z12.31 Screening for disorder 028976077 Z13.9 Lichen planus 4997261 L4 3.9 Rash atypical for lichen planus (distribut ion, not typical patches). If persists consider bx Goiter 5294681 E04.9 Heart murmur 41108347 R0 1.1 ? Murmur present since teens per ms. wen. Plan schedule echo after fu visit. Ms. Wne is a little overwhelme d with current plans so will defer until fu. [id number] Hellen rome MD [facility] (Adult Med) [address] [place] [address] 12/17/2020 08:56:59 12/18/2020 14:50:34 Goiter 3736638 E04.9 Euthyroid recent labs, us scheduled today Abnormal u terine bleeding 0897439370 9100 N93.9 Present x 1 year. Scheduled with director traffic and planning 12/21, US scheduled today. Elevated blood-pressure reading without diagnosis of hypertension 093746431 R03.0 Normotensi ve today. Encouraged diet, exercise, low salt diet. Home BP cuff ordered. Anemia 951776361 D64.9 Severe in context aub. Needs GI eval as well as director traffic and planning eval. [id number] NICHOLAS MCCALLUM, DO [facility] (PROTOZOOLOGIST) [address] [place] [address] 12/21/2020 11:07:04 12/24/2020 15:13:23 Uterine leiomyoma 80731598 D25.9 Abnormal u terine bleeding 5806601328 9100 N93.9 AUB -L vs AUB-O Long history of irregular menses with intermenst rual bleeding. Acute increase in flow over the last several months. Patient passing large clots, using up ~10 pads per day. Bleeding lasting now up to 2 weeks at a time.Assoc iated with acute blood loss anemia requiring transfusio n of 2 units PRBC's. Pelvic US showing numerous intramural fibroids, the largest ones measurin.3 x 6.3 cm - right intramural , 3.3 x 3.1 cm - left intramural . Endometria l stripe measures 12mm - No s/s of menopause. Plans for EMB in future if patient ultimately wishes to pursue hysterecto my. Smokes 1/2 ppd. History of RLE DVT in 2017. Poor candidate for estrogen containing contracept ion for bleeding regulation . Plans for Depo injection next week for attempted medical management . Pap at that time.F/U planned for mid to late January to reassess efficacy of medical management or sooner as needed. Anemia 229890446 D64.9 [id number] NICHOLAS MCCALLUM, [facility] (PROTOZOOLOGIST) [address] [place] [address] 12/28/2020 10:55:37 12/30/2020 12:17:08 Abnormal uterine bleeding 8486123113 9100 N93.9 AUB -L vs AUB-O Past work up:Long history of irregular menses with intermenst rual bleeding. Acute increase in flow over the last several months. Patient passing large clots, using up ~10 pads per day. Bleeding lasting now up to 2 weeks at a time.Assoc iated with acute blood loss anemia requiring transfusio n of 2 units PRBC's. Pelvic US 12/17/2020 showing numerous intramural fibroids, the largest ones measurin.3 x 6.3 cm - right intramural , 3.3 x 3.1 cm - left intramural . Endometria l stripe measures 12mm - No s/s of menopause. Plans for EMB in future if patient ultimately wishes to pursue hysterecto my. Smokes 1/2 ppd. History of RLE DVT in 2017. Poor candidate for estrogen containing contracept ion for bleeding regulation .......... .......... .......... .......... .......... .......... .......... ... Depo Provera today. Pap actually up to date (NILM, HPV neg 11/2016) with next due 11/2021. Patient declining offered pelvic exam. Vaginal spotting over last several days. No heavy bleeding. F/U planned for mid to late January to reassess efficacy of medical management or sooner as needed. Patient to continue oral iron in the interim. [id number] NICHOLAS MCCALLUM, DO [facility] (PROTOZOOLOGIST) [address] [place] [address] 04/19/2021 09:17:12 04/27/2021 16:10:27 Abnormal uterine bleeding 6433131826 9100 N93.9 AUB -L vs AUB-O Past work up:Long history of irregular menses with intermenst rual bleeding. Acute increase in flow over the last several months. Patient passing large clots, using up ~10 pads per day. Bleeding lasting now up to 2 weeks at a time.Assoc iated with acute blood loss anemia requiring transfusio n of 2 units PRBC's. No notable improvemen t in menses after 3 months of Depo Provera Pelvic US 12/17/2020 showing numerous intramural fibroids, the largest ones measurin.3 x 6.3 cm - right intramural , 3.3 x 3.1 cm - left intramural . Endometria l stripe measures 12mm - No s/s of menopause. Smokes 1/2 ppd. History of RLE DVT in 2017. Poor candidate for estrogen containing contracept ion for bleeding regulation . Pap up to date (NILM, HPV neg 11/2016) with next due 11/2021.--- -------Tod ay patient notes no notable improvemen t with Depo Provera. Bleeding most days of the month with heaviest days using up to 20 pads per day patient. additional reports significan t fatigue occasional dizziness, and shortness of breath that has significan tly impacting her ADLs. - We discussed given poor response to Depo-Prove ra, medical management will likely be unsuccessf ul at addressing her abnormal bleeding caused by multiple large fibroids. We discussed my recommenda tion for definitive surgical management . Patient agreeable to pursuing hysterecto my. Patient aware of my departure mid- and is aware that OR's are not currently allowing elective cases due to regional COVID-19 surge. Patient plans to follow up with [facility] for endometria l biopsy for future surgery planning. CBC today. Patient reports intermitte nt use of oral iron. Encouraged to take b.i.d. to t.i.d. with meals in addition to ibuprofen. Depo Provera injection today its help mitigate bleeding. [id number] Sincere Blunt MD [facility] raquel (PROTOZOOLOGIST) [address] [place] [address] 05/03/2021 12:03:13 05/04/2021 06:50:49 Abnormal uterine bleeding 6071604189 9100 N93.9 -12/17/20 Pelvic US: uterus 15.8 x 10.2 x 10.2cm, multiple fibroids (largest 6.3cm)-CBC completed d/t report of heavy bleeding, symptomato logy & recent (04/19/21) Hgb 8.1-PAP repeated, due for routine screening in ~6mo-EMB complete to r/o hyperplasi a/malignan cy; previous (03/15/17) EMB negative-d iscussed management options including medical, minor surgical (ie ablation), major surgical (ie LARA/BSO given size of uterus)-RT O 1wk for further E/M-ED precaution s reviewed regarding severe anemia [id number] Sincere Blunt MD [facility] (PROTOZOOLOGIST) [address] [place] [address] 05/10/2021 12:17:49 05/11/2021 12:53:38 Abnormal uterine bleeding 5293032743 9100 N93.9 -12/17/20 Pelvic US: uterus 15.8 x 10.2 x 10.2cm, multiple fibroids (largest 6.3cm)-sta ble Hgb 8.1 (04/19/21) > 8.8 (05/03/21); continue FeSO4- PAP NILM/HPV+ (16-/18-/4 5-); discussed repeat cotesting in 1yr-05/03/21 EMB: no hyperplasi a or malignancy ; features suggestive of chronic endometrit is-again discussed management options: patient leaning toward ablation-w ill continue DMPA at this time and Tx w/ doxycyclin e for chronic endometrit is-RTO 1mo for reassessme nt of bleeding; plan for ablation if not improved-E D precaution s reviewed regarding severe anemia Chronic endometritis 639 68826 N71.1 [id number] Hellen rome MD [facility] (Adult Med) [address] [place] [address] 07/01/2021 16:13:13 07/05/2021 09:25:12 Lichen planus 0119014 L43.9 ??Rash atypical for lichen planus (distribut ion, not typical patches). If persists consider bx Anemia 107409782 D64.9 Severe in context aub. Needs GI eval as well as director traffic and planning eval. Referred to GI again Impaired g lucose tolerance 3656896 R73.03 Goiter 6727656 E04.9 Euthyroid recent labs, us scheduled today Nonulcer dyspepsia 33915 07 K30 Chronic, intermitte nt. [id number] Harpal Woodruff, [facility] ts [address] [place] [address] 08/11/2021 15:31:55 08/13/2021 12:46:49 Gastroesophageal reflux disease 820364019 K21.9 Screening for malignant neoplasm of colon 489830398 Z12.11 Body mass index 30+ - obesity 443106831 Z68.36 [id number] Hellen rome MD [facility] (Adult Med) [address] [place] [address] 09/02/2021 10:26:43 09/03/2021 14:45:57 Abnormal uterine bleeding 2722019269 9100 N93.9 Evaluated by gyne, bleeding resolved with Depo. Anemia 2/2 AUB also resolved Urinary symptoms 5811937 08 R39.9 Mild urgency, frequency, feels like not emptying. Treated for UTI in ER 08/12 - request urine cx from ER. Untreated UTI? Visual disturbance 30382 001 H53.9 Nonspecifi c, chronic, grossly normal vision and exam. , has appt with optometry pending. Dizzy spells 924437616 R 42 Brief, spradic, assoc with rapid head movement but atypical in that present for 2 months . Monitor for now. Essential hypertension 17987223 I10 New dx. Encouraged take amlodipine every day and fu two weeks for BP check. Consider add HCTZ at that visit. Peripheral edema 9205881 00 R60.9 New onset, mild, no sx suggest CHF. Amlodipine side effect? Recheck at fu (will be taking amlodipine daily) Hyperglycemia 66905186 R 73.9 Recent nonfasting BS 89 and 117, A1C 7.0. Recheck at fu [id number] Hellen rome MD [facility] (Adult Med) [address] [place] [address] 10/13/2021 12:34:22 10/14/2021 09:24:48 Hyperglycemia 56206211 R73.9 Prev visit nonfasting BS 89 and 117, A1C 7.0. Today nonfastng BS 139 and A1C 6.6. Likely early DM. She is interested in wt loss benefit of metformin in addition to normalizin g BS and will start. Risks, benefits side effects and time to onset medication reviewed. Paresthesi a of upper limb 65235622 R20.2 L UE, chronic, worsening and weakness in L hand Essential hypertension 95272086 I10 Obove goal. Increase amlodipine Obesity 675352664 E66.9 Encouraged dietary moderation , exercise.M etformin may have some benefit. [id number] Cynthia Dillon MD [facility] (PROTOZOOLOGIST) [address] [place] [address] 10/20/2021 11:00:29 10/21/2021 08:51:25 Uterine leiomyoma 06810619 D25.9 Abnormal u terine bleeding 4326261878 9100 N93.9 Screening mammography 24 641093 Z12.31 [id number] Yovany Fletcher MD [facility] (PROTOZOOLOGIST) [address] [place] [address] 12/07/2021 11:02:50 12/08/2021 11:06:22 Surveillance of depot contraception done 4810165498 9104 Z30.42 Risks of hormonal control reviewed,m enstrual bleeding or no bleeding, weight changes, breast tenderness and mood changes. Risks of bone loss with Depo Provera also reviewed. All questions answered. Pt understand s & accepts risks. Instructio ns/warning signs given. Safe sex counseling done. Patient was instructed to follow up in 3months for depo [id number] Sha Kwon MD [address] [address] 01/10/2022 17:47:39 01/15/2022 19:08:20 [id number] Sha Kwon MD [address] [address] 01/26/2022 18:03:46 01/28/2022 14:26:40 History and physical examination, pre-employment 934263638 Z02.1 For foster care Essential hypertension 79664802 I10 Uncontroll ed Obesity 856266897 E66.9 [id number] Leslie Barnes MD [facility] (PROTOZOOLOGIST) [address] [place] [address] 03/01/2022 09:50:43 03/15/2022 10:40:11 Abnormal uterine bleeding 2741454521 9100 N93.9 Michelle is a 52 y/o female with history of AUB who presents to the clinic for continuati on of depo for treatment. She states that bleeding is greatly curtailed since being placed on this medication approximat jenniffer a year prior. 2020 US consistent with thickened endometria l stripe and numerous fibroids. Follow-up EMB consistent with chronic endometrit is. Patient denies signficant vaginal pain, changes in urinary or bowel habits- anticipato ry guidance and eduation provdided- pelvic US pending- ok for depo today- follow-up pending results or prn Pruritic rash 41968296 L 28.2 patient request steroid course refill for pruritic rash- ok at this time [id number] Yovany Fletcher MD [facility] (PROTOZOOLOGIST) [address] [place] [address] 05/17/2022 09:41:28 05/26/2022 15:28:34 Surveillance of depot contraception done 6432480436 9104 Z30.42 Risks of hormonal control reviewed,m enstrual bleeding or no bleeding, weight changes, breast tenderness and mood changes. Risks of bone loss with Depo Provera also reviewed. All questions answered. Pt understand s & accepts risks. Instructio ns/warning signs given. Safe sex counseling done. Patient was instructed to follow up in 3months for depo History of abnormal cervical Papanicolaou smear 074150582 Z87.42 Pt reminded to schedule appointmen t for repeat pap. pt educated on importance of follow up. pt verbalized understand ing Abnormal u terine bleeding 1030467698 9100 N93.9 Pt reminded to complete pelvic US that was ordered in February. Pt follow up here within 1 month. pt educated on importance of follow up. pt verbalized understand ing [id number] Tomeka Turner MD [facility] (PROTOZOOLOGIST) [address] [place] [address] 08/25/2022 08:38:23 09/01/2022 15:16:59 Contraception care management 889191433 Z30.9 Contracept aric options were discussed. Reviewed PAIGE, patch, ring, progestin only pill, DMPA, Nexplanon and IUD. Benefits, risks, side effects and danger signs discussed. The patient would like to use DMPAPt has been on depo provera for menstrual regulation due to fibroids and menorrhagi a. Discussed coming off in the next year due to age of menopause. Will discuss further at annual exam. Surveillan ce of depot contraception done 8508835921 9104 Z30.42 Last DMPA: 05/17/22 Next Due: 08/02/22-07/26 time: No 9 days lateUPT today: NegativeUn protected intercours e in the past 2 weeks: NoDMPA 150 mg IM x 1 given today.STI testing offered and declined as pt is not sexually active for the past 2 years.Safe sex and condom use discussed. Last pap smear: 05/03/21Next due: 3Discus sed the importance of adequate calcium intake and weight bearing exercises for bone loss prevention .Discussed benefits, side effects, and danger signs of DMPA use. No contraindi cations to DMPA use. FU in 3 months. Obesity 708484605 E66.9 Smoker 16736284 F17.402 [id number] Tomeka Turner MD [facility] (PROTOZOOLOGIST) [address] [place] [address] 11/10/2022 08:54:02 11/14/2022 09:05:17 Gynecologic examination 25193456 Z01.419 Certified Health Education Specialist exam completedB reast and thyroid WNLDenies any family history of breast, ovarian, pancreatic , endometria l cancer 1. Pap+ HPV cotesting done; Last pap 05/03/2021 NILM HPV low risk +2. STI screening declined.3 . Pt is using DMPA for control.4. Discussed breast self awareness5 . Mammogram ordered per ACOG guidelines 6. Educated on STI reduction and prevention . Encouraged condom use.7. 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 Screening mammography 213388 Z12.31 Last mammogram done 12/18/2020M ammogram orderd today Contracept ion care management 836716688 Z30.9 Contracept aric options were discussed. The patient would like to use DMPA Surveillan ce of depot contraception done 2707468635 9104 Z30.42 Last DMPA: 08/25/2022 Next Due: 11/10-On time: yesUnprote cted intercours e in the past 2 weeks: NoDMPA 150 mg IM x 1 given today.STI testing offered and declined as pt is not sexually active for the past 2 years.Safe sex and condom use discussed. Last pap smear: 05/03/21Next due: TodayDiscu ssed the importance of adequate calcium intake and weight bearing exercises for bone loss prevention .Discussed benefits, side effects, and danger signs of DMPA use. No contraindi cations to DMPA use. FU in 3 months. Obesity 092071455 E66.9 Screening for malignant neoplasm of colon 231690464 Z12.11 Never had colonoscop y done.Discu ssed procedure today in officeNew referral placed for patient. [id number] Tomeka Turner MD [facility] (PROTOZOOLOGIST) [address] [place] [address] 02/09/2023 09:31:46 02/13/2023 12:11:27 Surveillance of depot contraception done [id number] 9104 Z30.42 Last DMPA: 11/10/2022 Next Due: 01/26-02/09On time: yesUnprote cted intercours e in the past 2 weeks: NoDMPA 150 mg IM x 1 given today.STI testing offered and declined as pt is not sexually active for the past 2 years.Safe sex and condom use discussed. Last pap smear: 11/10/2022 NILM HRHPV NegNext due: iscus sed the importance of adequate calcium intake and weight bearing exercises for bone loss prevention .Discussed benefits, side effects, and danger signs of DMPA use. No contraindi cations to DMPA use. FU in 3 months. Obesity 292224137 E66.9 Smoker [id number] F17.192 [id number] Tomeka Turner MD [facility] (PROTOZOOLOGIST) [address] [place] [address] 04/27/2023 10:16:26 05/12/2023 13:22:39 Surveillance of depot contraception done [id number] 9104 Z30.42 Last DMPA: 02/09/2023 Next Due: 2/1- 024On time: yesUnprote cted intercours e in the past 2 weeks: NoDMPA 150 mg IM x 1 given today.STI testing offered and declined as pt is not sexually active for the past 2 years.Safe sex and condom use discussed. Last pap smear: 11/10/2022 NILM HRHPV NegNext due: iscus sed the importance of adequate calcium intake and weight bearing exercises for bone loss prevention .Discussed benefits, side effects, and danger signs of DMPA use. No contraindi cations to DMPA use. FU in 3 months. Obesity 572074252 E66.9 Smoker [id number] F17.609 [id number] Hellen rome MD [facility] (Adult Med) [address] [place] [address] 07/06/2023 10:01:39 07/07/2023 09:20:39 Essential hypertension 43374475 I10 At goal Prediabetes 386154250 R7 3.03 Lost 13 lb w/ increase veggies, decrease meat and sweet drinks Screening mammography 24 606579 Z12.31 Lichen planus 1207513 L4 3.9 Chronic rash atypical for lichen planus (distribut ion, not typical patches). Bx in about 2018 reportedly confirmed dx and oral steroids result in resolution for months. Consider re-bx vs derm Hyperglycemia 56613520 R 73.9 Prev visit nonfasting BS 89 and 117, A1C 7.0. Today nonfastng BS 139 and A1C 6.6. Likely early DM. She is interested in wt loss benefit of metformin in addition to normalizin g BS and will start. Risks, benefits side effects and time to onset medication reviewed. [id number] Hellen rome MD [facility] (Adult Med) [address] [place] [address] 08/23/2023 14:22:52 08/24/2023 10:18:44 Diabetes mellitus 55258753 E11.9 Risks, benefits side effects and time to onset medication reviewed. Obesity 045886607 E66.9 Encouraged dietary moderation , exercise.M etformin may have some benefit. 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 When I asked if she was ever x with genital herpes in past, she reported that lichen sclerosis is in the family of HSV, so not clear. I advised with next outbreak to schedule with myself or director traffic and planning. Obesity 327581562 E66.8 Encouraged dietary moderation , exercise. Metformin increase may have some benefit. 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 Ganglion c yst of left foot 1605640690 911392 M67.472 Plantar fasciitis 672322 003 M72.2 [id number] Shyam Stanley DPM [facility] [address] [place] [address] 02/16/2024 10:35:26 02/19/2024 09:29:52 Plantar fasciitis 105542394 M72.2 Ganglion c yst of left foot 9544311200 199763 M67.793 [id number] Hellen rome MD [facility] (Adult Med) [address] [place] [address] 03/06/2024 11:50:07 03/08/2024 14:36:19 Diabetes mellitus 43026426 E11.9 Last A1C:less than 7.0%Goal A1C less than:7.0%C urrent Therapy:me tformin GLP-1 RAStatin:y esACE/ARB: no due to negative nephropath y screeningF oot Exam:compl eted in the past 12 months-neg ativeNephr opathy Screening: completed in the past 12 months- negativePn eumovax 23:Decline dEye Exam:due- recommende d annual dilated eye examPatien t Education: healthy diet:exerc ise:weight loss:foot care:compl ications of uncontroll ed diabetes:m edication compliance :Next Visit: 6 month(s) Essential hypertension 92186041 I10 At goal at home < 120-130/80 Immunity t o hepatitis B determined by serology 2451270075 25803 Z78.9 Immunity t o varicella determined by serology 7434524404 91963 Z78.9 Obesity 504421794 E66.9 Deliberate wt loss. Smoker 07720060 F17.200 Not ready quit. Discuss LDCT at . [id number] Shyam Stanley DPM [facility] [address] [place] [address] 03/18/2024 10:43:35 03/18/2024 12:42:09 Plantar fasciitis 767252055 M72.2 Ganglion c yst of left foot 5900236802 483323 M67.103 [id number] Hellen rome MD [facility] (Adult Med) [address] [place] [address] 10/23/2024 13:59:01 10/25/2024 08:01:47 Low back pain 520330827 M54.50 [id number] Resolved at this time. PT may help prevent recurrence . New/worse sx, red flag sx, needs urgent reeval Type 2 sara betes mellitus 33032640 E11.9 90093860 Last A1C:less than 7.0%Goal A1C less than:7.0%C urrent Therapy:me tformin SGLT-2Stat in:yesACE/ ARB:no due to negative nephropath y screeningF oot Exam:compl eted in the past 12 months-neg ativeNephr opathy Screening: duePneumov ax 23:Decline dEye Exam:due- recommende d annual dilated eye examPatien t Education: healthy diet:exerc ise:weight loss:foot care:compl ications of uncontroll ed diabetes:m edication compliance :Next Visit: 6 month(s) Screening for malignant neoplasm of colon 120243815 Z12.11 [id number] Health Concerns Section Related Observation LastModified by Organization Detai ls LastModified Time None Recorded Concern Status LastModified by Organization Details LastModified Time None Recorded Advance Directives Directive N: Payers Insurance Date Sequence Insurance Name Policy Number Policy Rich Covered Member ID Rich Member ID Guarantor Name 10/25/2024 1 [facility] - DOS ON OR AFTER 20 (MEDICAID REPLACEMENT - HMO) Michelle Wen [id number] Michelle Wen 10/23/2024 1 [facility] (MEDICAID HMO) Michelle Wen [id number] Michelle Wen 10/23/2024 2 [facility] (MEDICAID HMO) Michelle Wen [id number] Michelle Wen Notes Date Note Type Note Provider Name and Address Organization Details Recorded Time 02/02/2024 text/html ROS as noted in the HPI Patient presents today complaining that she has area of the outside of the left foot. She states it has been there for a while and getting slightly large. Sometimes is painful when shoes rub against it. She also complains of pain in her right heel. Worse with ambulation and relieved with rest. She states that she also has been diagnosed with lichen planus in she originally had some cream that they put on there that help thin the skin out whenever she had the areas pop up. States that her right heel is getting worse over time. Cause of the scale in his lichen planus is also worse. Shyam Stanley DPM [address] [place], [address], [facility] 03/04/2024 09:12:19 02/16/2024 text/html Patient presents today for follow up of strapping for plantar fasciitis of the left foot as well as decompression of the ganglion cyst on the outside left foot. States that the cysts maybe filling up again but it is not really big and painful at this time. States that the strapping did help out her heel pain. Shyam Stanley DPM [address] [place], [address], 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 No new concerns. DM-A1C 6.5 No chest pain, sob, johnson Hellen Diez MD Attn: Accounting,[address] , [place], [address], [facility] 03/07/2024 13:58:43 03/18/2024 text/html patient presents today for follow up of ganglion cyst on left foot and dry significant scaly skin on her heels. She has been using the keratotic and states that he is much better. States that the cyst is not returned at this time. Still having some arch pain but she has not gotten the orthotics yet Shyam Stanley, DPHomer [address] [place], [address], [facility] 03/18/2024 11:20:09 10/23/2024 text/html 54 yo with HTN, DM, obesity and new concern 6 weeks L low back pain sometimes radiate into L leg. No weakness, bladd or bowel sx. Sx resolved at this time but recur unpredictably. No injury. Hellen Diez MD Attn: Accounting[address] , [place], [address], [facility] 10/24/2024 10:09:20 OBGyn Episode No OBEpisode recorded.
== END 2025-03-26 14:34 | disposition home or self-care (01) ==
LOC: ANHED 14:27
PROVIDERS: Emergency Provider Physician Assistant
DX: S39.012A Strain of muscle, fascia and tendon of lower back, initial encounter (principal); X50.0XXA Overexertion from strenuous movement or load, initial encounter; G89.29 Other chronic pain
CPT/HCPCS: 99283